=== PATIENT | male | born 1960 | race African-American/Black ===

== ENCOUNTER 2017-09-25 08:40 | Observation (INO) | payer OTHER ==
[2017-09-25] MEDS ORDERED: SODIUM CHLORIDE 1,000 ML IV STA (08:58)
--- NOTE | 2017-09-25 09:00 | PDOC ---
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 EMS's field EKG showed concave upward ST elevations in anterior leads without reciprocal changes, and their VS were wnl (BP in the 150s systolic prior to NTG). The patient notes no pain or other symptoms currently. At no time in the past few days has he had nausea, vomiting, SOB, sweats, jaw pain, neck pain, shoulder pain, back pain, or abdominal pain. He took no medications for his pain last night, but was still able to sleep though the pain, and he has never had this pain before. Past History - Past Medical History Allergies/Adverse Reactions: Allergies Allergy/AdvReac Type Severity Reaction Status Date / Time No Known Allergies Allergy Verified 09/25/17 08:45 Home Medications: Ambulatory Orders Aspirin 81 mg PO DAILY 09/25/17 Metoprolol Tartrate [Lopressor] 100 mg PO DAILY 09/25/17 COPD: No HTN: Yes Seizures: Yes (schiophrenia) - Suicide/Smoking/Psychosocial Hx Smoking History: Current every day smoker Have you smoked in the past 12 months: Yes Number of Cigarettes Smoked Daily: 7 Information on smoking cessation initiated: No Hx Alcohol Use: No Drug/Substance Use Hx: No Substance Use Type: None Review of Systems - Review of Systems Able to Perform ROS?: Yes Constitutional: No: Chills, Fever, Unexplained wgt Loss HEENTM: No: Nose Congestion, Throat Pain Respiratory: No: Cough, Shortness of Breath Cardiac (ROS): Yes: Chest Pain. No: Palpitations ABD/GI: No: Constipated, Diarrhea, Nausea, Vomiting : No: Burning, Dysuria Musculoskeletal: No: Back Pain, Neck Pain Integumentary: No: Bruising, Rash Neurological: No: Headache, Numbness, Tingling, Weakness, Dizziness Endocrine: No: Unexplained Weight Gain, Unexplained Weight Loss *Physical Exam - Vital Signs Last Vital Signs Temp Pulse Resp BP Pulse Ox 97.8 F 75 18 129/87 99 09/25/17 08:46 09/25/17 10:21 09/25/17 10:21 09/25/17 10:21 09/25/17 10:21 - Physical Exam General Appearance: Yes: Nourished, Appropriately Dressed, Thin, Other (well- appearing and nontoxic adult male who answers questions appropriately, appears comfortable). No: Apparent Distress HEENT: positive: EOMI, Normal Voice, Scleral Icterus (R) (mild), Scleral Icterus (L) (mild), Hearing Grossly Normal. negative: Nasal Congestion Neck: positive: Trachea midline, Supple. negative: Tender, Rigid Respiratory/Chest: positive: Lungs Clear, Normal Breath Sounds. negative: Chest Tender, Respiratory Distress, Crackles, Rhonchi, Stridor, Wheezing Cardiovascular: positive: Regular Rhythm, Regular Rate, S1, S2. negative: Edema , JVD, Murmur Gastrointestinal/Abdominal: positive: Normal Bowel Sounds, Flat, Soft. negative : Tender, Organomegaly, Pulsatile Mass, Guarding Musculoskeletal: positive: Normal Inspection. negative: Decreased Range of Motion, Vertebral Tenderness Extremity: positive: Normal Capillary Refill, Normal Inspection, Normal Range of Motion. negative: Tender, Cyanosis Integumentary: positive: Normal Color, Dry, Warm. 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 (grossly), Fully Oriented, Alert, Normal Mood/Affect, Normal Response, Motor Strength 5/5 Heart Score/ECG Review - History History: Moderately suspicious - Electrocardiogram EKG: Non specific repolarization disturbance - Age Age: 45-65 - Risk Factors Risk Factors Heart Score: Yes Hx Hypercholesterolemia, Yes Hx Hypertension, Yes Smoking History Based on the list above the patient has:: >/=3 risk factors or Hx atherosclerotic disease - Troponin Troponin: </= normal limit - Score Heart Score - Total: 5 ED Treatment Course - LABORATORY CBC & Chemistry Diagram: 09/25/17 09:10 09/25/17 09:10 - ADDITIONAL ORDERS Additional order review: Laboratory Results 09/25/17 09/25/17 09/25/17 09:10 09:10 09:10 PT with INR INR D-Dimer Sodium 140 Potassium 3.8 Chloride 104 Carbon Dioxide 31 Anion Gap 5 L BUN 11 Creatinine 0.8 Creat Clearance w eGFR > 60 Random Glucose 62 L Calcium 8.5 Magnesium 2.0 Total Bilirubin 0.6 AST 14 L ALT 25 Alkaline Phosphatase 63 Creatine Kinase 214 Troponin I < 0.02 Total Protein 6.7 Albumin 3.8 Lipase 166 Urine Color Straw Urine Appearance Clear Urine pH 7.0 Ur Specific [place] 1.004 Urine Protein Negative Urine Glucose (UA) Negative Urine Ketones Negative Urine Blood Negative Urine Nitrite Negative Urine Bilirubin Negative Urine Urobilinogen Negative Ur Leukocyte Esterase Negative Blood Type AB POSITIVE Antibody Screen Negative 09/25/17 09:10 PT with INR 11.50 INR 1.02 D-Dimer < 200 Sodium Potassium Chloride Carbon Dioxide Anion Gap BUN Creatinine Creat Clearance w eGFR Random Glucose Calcium Magnesium Total Bilirubin AST ALT Alkaline Phosphatase Creatine Kinase Troponin I Total Protein Albumin Lipase Urine Color Urine Appearance Urine pH Ur Specific [place] Urine Protein Urine Glucose (UA) Urine Ketones Urine Blood Urine Nitrite Urine Bilirubin Urine Urobilinogen Ur Leukocyte Esterase Blood Type Antibody Screen 09/25/17 09:10 RBC 4.43 MCV 98.2 H MCHC 32.6 RDW 13.8 MPV 7.7 Neutrophils % 45.3 Lymphocytes % 44.4 H Monocytes % 8.4 Eosinophils % 1.2 Basophils % 0.7 - RADIOLOGY Radiology Studies Ordered: Category Date Time Status CHEST PA & LAT [RAD] Stat Radiology 09/25/17 08:58 Taken - Medications Given in the ED: ED Medications Discontinued Medications Generic Name Dose Route Start Last Admin Trade Name Freq PRN Reason Stop Dose Admin Sodium Chloride 1,000 mls @ 1,000 mls/hr 09/25/17 08:58 09/25/17 10:12 Normal Saline - IV 09/25/17 09:57 1,000 mls/hr ASDIR STA Administration Medical Decision Making - Medical Decision Making 57 YOM with HTN HLD Smoker Schizophrenia p/w chest pain resolved with NTG and ASA. VS wnl and appears comfortable, NAD, NARD, heart exam wnl, lungs CTAB, abdomen no ttp. EKG with isolated BAKARI in V1, no reciprocal changes, t-wave flattening in III and aVL. DDX IBNLT ACS, angina (stable vs unstable), PNA, bronchitis, esophageal tear, GERD, PTX, panc, GB, etc. Ordered is CBCD CMP Mg Cardiac panel Coags T&S Lipase UA Cx EKG CXR. Patient likely to be admitted at least to obs for cardiology consult and stress test/further monitoring. 09/25/17 10:30 Enzymes wnl, otherwise w/u unremarkable except EKG as noted above. Spoke with patient; he can't remember the name of his PCP. Spoke with Tiana Greco, patient admitted to Tele Obs [facility]. *DC/Admit/Observation/Transfer Diagnosis at time of Disposition: Chest pain Qualifiers: Chest pain type: unspecified Qualified Code(s): R07.9 - Chest pain, unspecified - Discharge Dispostion Condition at time of disposition: Guarded Admit: Yes Decision to Admit order Date/Time: Decision to Admit Order Category Date Time Status Decision to Admit to Hospital Routine Admission 09/25/17 10:30 Ordered - Referrals - Patient Instructions - Post Discharge Activity
[2017-09-25 09:27] LABS: BASO % 0.7 % (0-2.0); EOS % 1.2 % (0-4.5); HEMATOCRIT 43.5 % (35.4-49); HEMOGLOBIN 14.2 GM/dL (11.7-16.9); LYMPH % 44.4 % (8-40); MCHC 32.6 g/dl (32.0-35.9); MEAN CELL VOLUME 98.2 fl (80-96); MEAN PLT VOLUME 7.7 fl (7.5-11.1); MONO % 8.4 % (3.8-10.2); NEUT % 45.3 % (42.8-82.8); PLATELET COUNT 198 K/MM3 (134-434); RBC 4.43 M/mm3 (4.00-5.60); RDW 13.8 % (11.9-15.9); WHITE BLOOD COUNT 5.2 K/mm3 (4.0-10.0)
[2017-09-25 09:30] LABS: URINE APPEARANCE CLEAR; URINE BILIRUBIN NEGATIVE (NEGATIVE); URINE BLOOD NEGATIVE (NEGATIVE); URINE COLOR STRAW; URINE GLUCOSE (UA) NEGATIVE (NEGATIVE); URINE KETONE NEGATIVE (NEGATIVE); URINE LEUK ESTERASE NEGATIVE (NEGATIVE); URINE NITRITE NEGATIVE (NEGATIVE); URINE PROTEIN NEGATIVE (NEGATIVE); URINE UROBILINOGEN NEGATIVE mg/dL (0.2-1.0)
[2017-09-25 09:50] LABS: ALBUMIN 3.8 g/dl (3.4-5.0); ANION GAP 5 (8-16); BILIRUBIN,TOTAL 0.6 mg/dL (0.2-1.0); BLOOD UREA NITROGEN 11 mg/dL (7-18); CALCIUM 8.5 mg/dL (8.5-10.1); CHLORIDE 104 mmol/L (98-107); CO2 31 mmol/L (21-32); CREATININE 0.8 mg/dL (0.7-1.3); GLUCOSE,RANDOM 62 mg/dL (74-106); LIPASE 166 U/L (73-393); POTASSIUM 3.8 mmol/L (3.5-5.1); SGOT/AST 14 U/L (15-37); SGPT/ALT 25 U/L (12-78); SODIUM 140 mmol/L (136-145); TOT PROT 6.7 g/dl (6.4-8.2)
[2017-09-25 09:53] LABS: ALK PHOS 63 U/L (45-117)
[2017-09-25 10:06] LABS: INR 1.02 (0.82-1.09)
[2017-09-25 10:07] LABS: D-DIMER < 200 ng/ml (0-500)
--- NOTE | 2017-09-25 10:20 | PDOC ---
Attending Attestation - Resident Resident Name: Lia Hermosillo - ED Attending Attestation I have performed the following: I have examined & evaluated the patient, The case was reviewed & discussed with the resident, I agree w/resident's findings & plan, Exceptions are as noted - HPI HPI: 09/25/17 10:17 57-year-old male with history of hypertension, high cholesterol, schizophrenia, active smoker presents brought in by ambulance with chest pain since last night. Symptoms currently resolved, received ntg by EMS. - Physicial Exam PE: 09/25/17 10:18 VSS, thin regular heart sounds, clear lungs no edema - Medical Decision Making 09/25/17 10:18 Patient seen and evaluated with the resident. I agree with the overall evaluation, assessment, and management with the following summary of visit: 57-year-old male presents with chest pain since last night, possibly ACS. No risk factors for PE, vital signs normal. EKG without acute ischemic changes Labs, chest x-ray Aspirin Admission to telemetry for further cardiac monitoring and evaluation Heart Score/ECG Review #1 General ECG Interpretation: Sinus Rhythm, Normal Rate, Normal Intervals, No acute ischemic changes (poor baseline in V1, flat T II)
--- NOTE | 2017-09-25 10:49 | EKG ---
Test Reason : Blood Pressure : / mmHG Vent. Rate : 067 BPM Atrial Rate : 067 BPM P-R Int : 158 ms QRS Dur : 090 ms QT Int : 368 ms P-R-T Axes : 060 038 048 degrees QTc Int : 388 ms NORMAL SINUS RHYTHM NORMAL ECG NO PREVIOUS ECGS AVAILABLE Confirmed by Francis Weaver ([id number]) on 09/25/2017 10:48:50 AM Referred By: Confirmed By:Fracnis Weaver
[2017-09-25] MEDS ORDERED: ACETAMINOPHEN 325 MG TABLET (FP) PO PRN (10:52)
--- NOTE | 2017-09-25 11:09 | HP ---
CHIEF COMPLAINT: Chest pain PCP: [facility] Psych: Dr. Benton, [facility] HISTORY OF PRESENT ILLNESS: 57 year-old male with a PMH significant for HTN, HLD, schizophrenia, and current smoker. Patient reports he had just gotten off the bus from [facility] and was walking to the [place] [facility] [address] where he resides when he developed sharp, mid-sternal chest pain. He continued walking to the [place] [facility] and went to sleep. When he awoke this morning the pain was still present. EMS was activated and en route to the ED they administered sublingual nitro and a full dose ASA and patient reports his pain was immediately relieved. Patient denies SOB, GALARZA, decreased exercise tolerance, palpitations, dizziness, or lower extremity edema. He states when he flexes his neck he can reproduce the chest pain. ER course was notable for: (1) Troponin neg x 1 (2) CXR unremarkable (3) Non-specific ECG changes Recent Travel: No PAST MEDICAL HISTORY: Hypertension Hyperlipidemia Schizophrenia PAST SURGICAL HISTORY: None reported Social History: Smoking: current every day Alcohol: no Drugs: no Family History: mother alive 94 unaware of medical history; father 73 internal bleeding; siblings a&w; children a&w Allergies No Known Allergies Allergy (Verified 09/25/17 08:45) HOME MEDICATIONS: Home Medications Medication Instructions Recorded Aspirin 81 mg PO DAILY 09/25/17 Metoprolol Tartrate [Lopressor] 100 mg PO DAILY 09/25/17 REVIEW OF SYSTEMS CONSTITUTIONAL: Absent: fever, chills, diaphoresis, generalized weakness, malaise, loss of appetite, weight change HEENT: Absent: rhinorrhea, nasal congestion, throat pain, throat swelling, difficulty swallowing, mouth swelling, ear pain, eye pain, visual changes CARDIOVASCULAR: +chest pain Absent: syncope, palpitations, irregular heart rate, lightheadedness, peripheral edema RESPIRATORY: Absent: cough, shortness of breath, dyspnea with exertion, orthopnea, wheezing, stridor, hemoptysis GASTROINTESTINAL: Absent: abdominal pain, abdominal distension, nausea, vomiting, diarrhea, constipation, melena, hematochezia GENITOURINARY: Absent: dysuria, frequency, urgency, hesitancy, hematuria, flank pain, genital pain MUSCULOSKELETAL: Absent: myalgia, arthralgia, joint swelling, back pain, neck pain SKIN: Absent: rash, itching, pallor HEMATOLOGIC/IMMUNOLOGIC: Absent: easy bleeding, easy bruising, lymphadenopathy, frequent infections ENDOCRINE: Absent: unexplained weight gain, unexplained weight loss, heat intolerance, cold intolerance NEUROLOGIC: Absent: headache, focal weakness or paresthesias, dizziness, unsteady gait, seizure, mental status changes, bladder or bowel incontinence PSYCHIATRIC: Absent: anxiety, depression, suicidal or homicidal ideation, hallucinations. PHYSICAL EXAMINATION Vital Signs - 24 hr 09/25/17 09/25/17 09/25/17 08:46 09:33 10:21 Temperature 97.8 F Pulse Rate 74 Pulse Rate [ 77 75 Left Radial] Respiratory 20 21 18 Rate Blood Pressure 130/87 Blood Pressure 132/87 129/87 [Right Arm] O2 Sat by Pulse 100 97 99 Oximetry (%) GENERAL: Awake, alert, and fully oriented, in no acute distress. HEAD: Normal with no signs of trauma. EYES: Pupils equal, round and reactive to light, extraocular movements intact, sclera anicteric, conjunctiva clear. No lid lag. EARS, NOSE, THROAT: Ears normal, nares patent, oropharynx clear without exudates. Moist mucous membranes. NECK: Normal range of motion, supple without lymphadenopathy, JVD, or masses. LUNGS: Breath sounds equal, clear to auscultation bilaterally. No wheezes, and no crackles. No accessory muscle use. HEART: Regular rate and rhythm, normal S1 and S2 ABDOMEN: Soft, nontender, not distended, normoactive bowel sounds, no guarding, no rebound, no masses. No hepatomegaly or splenomegaly. MUSCULOSKELETAL: Normal range of motion at all joints. No bony deformities or tenderness. No CVA tenderness. UPPER EXTREMITIES: 2+ pulses, warm, well-perfused. No cyanosis. No clubbing. No peripheral edema. LOWER EXTREMITIES: 2+ pulses, warm, well-perfused. No calf tenderness. No peripheral edema. NEUROLOGICAL: Cranial nerves II-XII intact. Normal speech. PSYCHIATRIC: Cooperative. Good eye contact. Appropriate mood and affect. Laboratory Results - last 24 hr 09/25/17 09/25/17 09/25/17 09:10 09:10 09:10 WBC 5.2 RBC 4.43 Hgb 14.2 Hct 43.5 MCV 98.2 H MCH 32.0 MCHC 32.6 RDW 13.8 Plt Count 198 MPV 7.7 Neutrophils % 45.3 Lymphocytes % 44.4 H Monocytes % 8.4 Eosinophils % 1.2 Basophils % 0.7 PT with INR 11.50 INR 1.02 D-Dimer < 200 Sodium Potassium Chloride Carbon Dioxide Anion Gap BUN Creatinine Creat Clearance w eGFR Random Glucose Calcium Magnesium Total Bilirubin AST ALT Alkaline Phosphatase Creatine Kinase Troponin I Total Protein Albumin Lipase Urine Color Straw Urine Appearance Clear Urine pH 7.0 Ur Specific [place] 1.004 Urine Protein Negative Urine Glucose (UA) Negative Urine Ketones Negative Urine Blood Negative Urine Nitrite Negative Urine Bilirubin Negative Urine Urobilinogen Negative Ur Leukocyte Esterase Negative Blood Type Antibody Screen 09/25/17 09/25/17 09:10 09:10 WBC RBC Hgb Hct MCV MCH MCHC RDW Plt Count MPV Neutrophils % Lymphocytes % Monocytes % Eosinophils % Basophils % PT with INR INR D-Dimer Sodium 140 Potassium 3.8 Chloride 104 Carbon Dioxide 31 Anion Gap 5 L BUN 11 Creatinine 0.8 Creat Clearance w eGFR > 60 Random Glucose 62 L Calcium 8.5 Magnesium 2.0 Total Bilirubin 0.6 AST 14 L ALT 25 Alkaline Phosphatase 63 Creatine Kinase 214 Troponin I < 0.02 Total Protein 6.7 Albumin 3.8 Lipase 166 Urine Color Urine Appearance Urine pH Ur Specific [place] Urine Protein Urine Glucose (UA) Urine Ketones Urine Blood Urine Nitrite Urine Bilirubin Urine Urobilinogen Ur Leukocyte Esterase Blood Type AB POSITIVE Antibody Screen Negative ASSESSMENT/PLAN 57 year-old male with a PMH significant for HTN, HLD, schizophrenia, and current smoker. Placed on observation for chest pain. Chest pain --troponin neg x2; third pending --ECG without signs of acute ischemic event --CXR unremarkable --Echo: LV normal; RV normal; no valvular abnormalities --Sestimibi stress test in progress, complete tomorrow Hypertension --BP stable --hold metoprolol due to stress testing Hyperlipidemia --continue Lipitor Schizophrenia --continue haldol BID FEN Fluids: PO intake adequate Electrolytes: replete as indicated Nutrition: low sodium; NPO after midnight DVT prophylaxis: oob, ambulation Dispo: continues to require observation. Full code. Visit type - Emergency Visit Emergency Visit: Yes ED Registration Date: 09/25/17 Care time: The patient presented to the Emergency Department on the above date and was hospitalized for further evaluation of their emergent condition. - New Patient This patient is new to me today: Yes Date on this admission: 09/25/17 - Critical Care Critical Care patient: No
[2017-09-25] MEDS ORDERED: ASPIRIN 325 MG ENTERIC COATED TABLET (FP) PO ONE (11:11)
[2017-09-25] MEDS ORDERED: ATORVASTATIN CA 40 MG TABLET (FP) PO ONE (11:23)
[2017-09-25] MEDS ORDERED: NITROGLYCERIN SUBLINGUAL 1/150 0.4 MG TAB SL PRN (11:24)
[2017-09-25] MEDS ORDERED: PATIENT'S OWN MEDICATION (NON-FORMULARY) (Metoprolol Tartrate [Lopressor] 100 MG) PO SCH (11:30)
[2017-09-25] MEDS ORDERED: METOPROLOL TARTRATE 50 MG TABLET (FP) PO SCH (11:30)
[2017-09-25 12:45] VITALS: BMI 21.8
[2017-09-25] MEDS: DEXTROSE 5%-NORMAL SALINE 1,000 ML IV SCH (12:52)
--- NOTE | 2017-09-25 13:23 | CON.CARD ---
Consult Consult Specialty:: Cardiology Reason for Consultation:: Chest pain - History of Present Illness History of Present Illness: 57 M with HTN, HLD and schizophrenia was admitted after several hours of left sided chest pain which started yesterday afternoon and continued all night. Patient reported symptoms to his home nursing staff in the morning and EMS was called. His pain subsided after SL NTG given by EMS. CP is left sided without radiation and increases when ambulating. Currently pain free - History Source History Provided By: Patient Limitations to Obtaining History: No Limitations - Past Medical History Cardio/Vascular: Yes: HTN, Hyperlipdemia Psych: Yes: Schizophrenia - Alcohol/Substance Use Hx Alcohol Use: No - Smoking History Smoking history: Current every day smoker Have you smoked in the past 12 months: Yes Aproximately how many cigarettes per day: 7 Home Medications - Allergies Allergies/Adverse Reactions: Allergies Allergy/AdvReac Type Severity Reaction Status Date / Time No Known Allergies Allergy Verified 09/25/17 08:45 - Home Medications Home Medications: Ambulatory Orders Aspirin 81 mg PO DAILY 09/25/17 Haloperidol [Haldol -] 5 mg PO BID 09/25/17 Metoprolol Tartrate [Lopressor] 100 mg PO DAILY 09/25/17 Simvastatin [Zocor -] 10 mg PO DAILY 09/25/17 Review of Systems - Review of Systems Constitutional: reports: No Symptoms, Chills Eyes: reports: No Symptoms HENT: reports: No Symptoms. denies: Difficult Swallowing Neck: reports: No Symptoms Cardiovascular: reports: Chest Pain. denies: Palpitations, Shortness of Breath Respiratory: reports: Exercise Intolerance. denies: Cough, Hemoptysis, Orthopnea, SOB on Exertion Gastrointestinal: reports: No Symptoms Genitourinary: reports: No Symptoms Vital Signs: Vital Signs Temperature 98 F 09/25/17 13:07 Pulse Rate 62 09/25/17 13:07 Respiratory Rate 18 09/25/17 13:07 Blood Pressure 134/90 09/25/17 13:07 O2 Sat by Pulse Oximetry (%) 97 09/25/17 12:58 Constitutional: Yes: Well Nourished, No Distress, Calm Eyes: Yes: Conjunctiva Clear, EOM Intact HENT: Yes: Atraumatic, Normocephalic Neck: Yes: Supple, Trachea Midline Respiratory: Yes: Regular, CTA Bilaterally Gastrointestinal: Yes: Normal Bowel Sounds, Soft Cardiovascular: Yes: Regular Rate and Rhythm JVD: No Carotid Bruit: No PMI: Non-Displaced Heart Sounds: Yes: S1, S2 Murmur: No: Systolic Murmur, Diastolic Murmur Edema: No - Other Data Labs, Other Data: CBC, BMP 09/25/17 09:10 09/25/17 09:10 INR, PTT INR 1.02 (0.82-1.09) 09/25/17 09:10 Troponin, BNP 09/25/17 09:10 Troponin I < 0.02 Troponin, BNP 09/25/17 09:10 Troponin I < 0.02 NSR no STT changes Problem List - Problems (1) Chest pain Code(s): R07.9 - CHEST PAIN, UNSPECIFIED Qualifiers: Chest pain type: unspecified Qualified Code(s): R07.9 - Chest pain, unspecified Assessment/Plan Prolonged CP with exacerbation on exertion. Presentation TP and ECG is normal. Rec obtaining Nuclear stress test. Hold metoprolol
[2017-09-25] MEDS: HALOPERIDOL 5 MG TABLET (FP) PO SCH (21:18)
[2017-09-26 07:20] LABS: BASO % 0.5 % (0-2.0); EOS % 1.1 % (0-4.5); HEMATOCRIT 42.4 % (35.4-49); LYMPH % 36.1 % (8-40); MCH 32.2 pg (25.7-33.7); MEAN CELL VOLUME 97.5 fl (80-96); MEAN PLT VOLUME 8.2 fl (7.5-11.1); NEUT % 51.3 % (42.8-82.8); PLATELET COUNT 191 K/MM3 (134-434); RBC 4.34 M/mm3 (4.00-5.60); RDW 13.7 % (11.9-15.9); WHITE BLOOD COUNT 5.3 K/mm3 (4.0-10.0)
[2017-09-26 07:54] LABS: CHLORIDE 108 mmol/L (98-107); POTASSIUM 4.1 mmol/L (3.5-5.1); SODIUM 145 mmol/L (136-145)
[2017-09-26 08:03] LABS: ALBUMIN 3.5 g/dl (3.4-5.0); ALK PHOS 54 U/L (45-117); ANION GAP 8 (8-16); BILIRUBIN,TOTAL 0.6 mg/dL (0.2-1.0); BLOOD UREA NITROGEN 19 mg/dL (7-18); CALCIUM 8.6 mg/dL (8.5-10.1); CO2 29 mmol/L (21-32); CREATININE 1.1 mg/dL (0.7-1.3); GLUCOSE,RANDOM 80 mg/dL (74-106); MAGNESIUM 2.1 mg/dL (1.8-2.4); SGOT/AST 20 U/L (15-37); SGPT/ALT 23 U/L (12-78); TOT PROT 6.2 g/dl (6.4-8.2)
--- NOTE | 2017-09-26 08:35 | PN ---
Physical Exam: SUBJECTIVE: Patient seen and examined OBJECTIVE: Vital Signs Period Temp Pulse Resp BP Sys/Carney Pulse Ox Last 24 Hr 97.0 F-98.2 F 62-77 18-21 129-144/82-96 97-100 Laboratory Results - last 24 hr 09/25/17 09/25/17 09/25/17 09:10 09:10 09:10 WBC 5.2 RBC 4.43 Hgb 14.2 Hct 43.5 MCV 98.2 H MCH 32.0 MCHC 32.6 RDW 13.8 Plt Count 198 MPV 7.7 Neutrophils % 45.3 Lymphocytes % 44.4 H Monocytes % 8.4 Eosinophils % 1.2 Basophils % 0.7 PT with INR 11.50 INR 1.02 D-Dimer < 200 Sodium Potassium Chloride Carbon Dioxide Anion Gap BUN Creatinine Creat Clearance w eGFR Random Glucose Calcium Magnesium Total Bilirubin AST ALT Alkaline Phosphatase Creatine Kinase Creatine Kinase Index CK-MB (CK-2) Troponin I Total Protein Albumin Lipase Urine Color Straw Urine Appearance Clear Urine pH 7.0 Ur Specific [place] 1.004 Urine Protein Negative Urine Glucose (UA) Negative Urine Ketones Negative Urine Blood Negative Urine Nitrite Negative Urine Bilirubin Negative Urine Urobilinogen Negative Ur Leukocyte Esterase Negative Blood Type Antibody Screen 09/25/17 09/25/17 09/25/17 09:10 09:10 15:00 WBC RBC Hgb Hct MCV MCH MCHC RDW Plt Count MPV Neutrophils % Lymphocytes % Monocytes % Eosinophils % Basophils % PT with INR INR D-Dimer Sodium 140 Potassium 3.8 Chloride 104 Carbon Dioxide 31 Anion Gap 5 L BUN 11 Creatinine 0.8 Creat Clearance w eGFR > 60 Random Glucose 62 L Calcium 8.5 Magnesium 2.0 Total Bilirubin 0.6 AST 14 L ALT 25 Alkaline Phosphatase 63 Creatine Kinase 214 Creatine Kinase Index 0.8 CK-MB (CK-2) 1.919 Troponin I < 0.02 < 0.02 Total Protein 6.7 Albumin 3.8 Lipase 166 Urine Color Urine Appearance Urine pH Ur Specific [place] Urine Protein Urine Glucose (UA) Urine Ketones Urine Blood Urine Nitrite Urine Bilirubin Urine Urobilinogen Ur Leukocyte Esterase Blood Type AB POSITIVE Antibody Screen Negative 09/25/17 09/26/17 09/26/17 21:00 06:11 06:11 WBC 5.3 RBC 4.34 Hgb 14.0 Hct 42.4 MCV 97.5 H MCH 32.2 MCHC 33.0 RDW 13.7 Plt Count 191 MPV 8.2 Neutrophils % 51.3 Lymphocytes % 36.1 Monocytes % 11.0 H Eosinophils % 1.1 Basophils % 0.5 PT with INR INR D-Dimer Sodium 145 Potassium 4.1 Chloride 108 H Carbon Dioxide 29 Anion Gap 8 BUN 19 H D Creatinine 1.1 D Creat Clearance w eGFR > 60 Random Glucose 80 D Calcium 8.6 Magnesium 2.1 Total Bilirubin 0.6 AST 20 D ALT 23 Alkaline Phosphatase 54 Creatine Kinase Creatine Kinase Index CK-MB (CK-2) Troponin I < 0.02 Total Protein 6.2 L Albumin 3.5 Lipase Urine Color Urine Appearance Urine pH Ur Specific [place] Urine Protein Urine Glucose (UA) Urine Ketones Urine Blood Urine Nitrite Urine Bilirubin Urine Urobilinogen Ur Leukocyte Esterase Blood Type Antibody Screen Active Medications Generic Name Dose Route Start Last Admin Trade Name Freq PRN Reason Stop Dose Admin Acetaminophen 650 mg 09/25/17 10:52 Tylenol - PO Q6H PRN PAIN LEVEL 1-5 Aspirin 81 mg 09/26/17 10:00 Asa - PO DAILY RAFAL Atorvastatin Calcium 40 mg 09/26/17 22:00 Lipitor - PO HS RAFAL Haloperidol 5 mg 09/25/17 22:00 09/25/17 21:18 Haldol - PO Not Given BID RAFAL Dextrose/Sodium Chloride 1,000 mls @ 50 mls/hr 09/25/17 12:15 09/25/17 12:52 D5-Ns - IV 50 mls/hr ASDIR RAFAL Administration Metoprolol Tartrate 50 mg 09/25/17 11:30 09/26/17 07:40 Lopressor - PO Not Given BID RAFAL Nitroglycerin 0.4 mg 09/25/17 11:24 Nitrostat - SL Q5M PRN FOR CHEST PAIN ASSESSMENT/PLAN: 57 year-old male with a PMH significant for HTN, HLD, schizophrenia, and current smoker. Placed on observation for chest pain. Chest pain --troponin neg x2; third pending --ECG without signs of acute ischemic event --CXR unremarkable --Echo: LV normal; RV normal; no valvular abnormalities --Sestimibi stress test in progress, complete tomorrow Hypertension --BP stable --hold metoprolol due to stress testing Hyperlipidemia --continue Lipitor Schizophrenia --continue haldol BID FEN Fluids: PO intake adequate Electrolytes: replete as indicated Nutrition: low sodium; NPO after midnight DVT prophylaxis: oob, ambulation Dispo: continues to require observation. Full code.
[2017-09-26] MEDS ORDERED: ASPIRIN 81 MG CHEWABLE TABLETS PO SCH (10:00)
--- NOTE | 2017-09-26 11:30 | EKG ---
Test Reason : Blood Pressure : / mmHG Vent. Rate : 058 BPM Atrial Rate : 058 BPM P-R Int : 168 ms QRS Dur : 088 ms QT Int : 384 ms P-R-T Axes : 070 045 049 degrees QTc Int : 376 ms SINUS BRADYCARDIA OTHERWISE NORMAL ECG WHEN COMPARED WITH ECG OF 25-SEP-2017 08:43, CRITERIA FOR SEPTAL INFARCT ARE NO LONGER PRESENT T WAVE AMPLITUDE HAS INCREASED IN ANTERIOR LEADS Confirmed by JOSE LUIS JOHNSON, YEMI ([id number]) on 09/26/2017 11:30:17 AM Referred By: Chana BIRCH Confirmed By:YEMI AMAYA MD
[2017-09-26] MEDS: HALOPERIDOL 5 MG TABLET (FP) PO SCH (12:51)
[2017-09-26] MEDS: DEXTROSE 5%-NORMAL SALINE 1,000 ML IV SCH (12:51)
[2017-09-26] MEDS ORDERED: PT OWN MED DRAWER 7, Y5N ONE (12:51)
--- NOTE | 2017-09-26 13:53 | DS ---
Physical Exam: SUBJECTIVE: Patient seen and examined OBJECTIVE: Vital Signs Period Temp Pulse Resp BP Sys/Carney Pulse Ox Last 24 Hr 97.0 F-98.2 F 64-70 20-20 131-144/82-96 98-99 PHYSICAL EXAM GENERAL: The patient is awake, alert, and fully oriented, in no acute distress. HEAD: Normal with no signs of trauma. EYES: PERRL, extraocular movements intact, sclera anicteric, conjunctiva clear. ENT: Ears normal, nares patent, oropharynx clear without exudates, moist mucous membranes. NECK: Trachea midline, full range of motion, supple. LUNGS: Breath sounds equal, clear to auscultation bilaterally, no wheezes, no crackles, no accessory muscle use. HEART: Regular rate and rhythm, S1, S2 without murmur, rub or gallop. ABDOMEN: Soft, nontender, nondistended, normoactive bowel sounds, no guarding, no rebound, no hepatosplenomegaly, no masses. EXTREMITIES: 2+ pulses, warm, well-perfused, no edema. NEUROLOGICAL: Cranial nerves II through XII grossly intact. Normal speech, gait not observed. PSYCH: Normal mood, normal affect. SKIN: Warm, dry, normal turgor, no rashes or lesions noted. LABS Laboratory Results - last 24 hr 09/25/17 09/25/17 09/25/17 09:10 15:00 21:00 WBC RBC Hgb Hct MCV MCH MCHC RDW Plt Count MPV Neutrophils % Lymphocytes % Monocytes % Eosinophils % Basophils % Sodium Potassium Chloride Carbon Dioxide Anion Gap BUN Creatinine Creat Clearance w eGFR Random Glucose Calcium Magnesium Total Bilirubin AST ALT Alkaline Phosphatase Creatine Kinase Index 0.8 CK-MB (CK-2) 1.919 Troponin I < 0.02 < 0.02 Total Protein Albumin 09/26/17 09/26/17 06:11 06:11 WBC 5.3 RBC 4.34 Hgb 14.0 Hct 42.4 MCV 97.5 H MCH 32.2 MCHC 33.0 RDW 13.7 Plt Count 191 MPV 8.2 Neutrophils % 51.3 Lymphocytes % 36.1 Monocytes % 11.0 H Eosinophils % 1.1 Basophils % 0.5 Sodium 145 Potassium 4.1 Chloride 108 H Carbon Dioxide 29 Anion Gap 8 BUN 19 H D Creatinine 1.1 D Creat Clearance w eGFR > 60 Random Glucose 80 D Calcium 8.6 Magnesium 2.1 Total Bilirubin 0.6 AST 20 D ALT 23 Alkaline Phosphatase 54 Creatine Kinase Index CK-MB (CK-2) Troponin I Total Protein 6.2 L Albumin 3.5 HOSPITAL COURSE: Date of Admission:09/25/17 Date of Discharge: 09/26/17 Pre hospital course 57 year-old male with a PMH significant for HTN, HLD, schizophrenia, and current smoker. Patient reports he had just gotten off the bus from [facility] and was walking to the jail on [facility] where he resides when he developed sharp, mid-sternal chest pain. He continued walking to the jail and went to sleep. When he awoke this morning the pain was still present. EMS was activated and en route to the ED they administered sublingual nitro and a full dose ASA and patient reports his pain was immediately relieved. Patient denies SOB, GALARZA, decreased exercise tolerance, palpitations, dizziness, or lower extremity edema. He states when he flexes his neck he can reproduce the chest pain. ER course (1) Troponin neg x 1 (2) CXR unremarkable (3) Non-specific ECG changes Subsequent hospital course by problem list Chest pain --troponin neg x3 --ECG without signs of acute ischemic event --CXR unremarkable --09/26 Sestimibi stress test: fixed inferior wall perfusion defect consistent with diaphragmatic attenuation Systolic heart failure --09/25 Echo: LV normal; RV normal; no valvular abnormalities --09/26 stress test: mild global hypokineses, mildly reduced systolic function , EF 44% Hypertension --BP stable --resumed home metoprolol Hyperlipidemia --continue Lipitor Schizophrenia --continue haldol BID FEN Fluids: PO intake adequate Electrolytes: replete as indicated Nutrition: low sodium; NPO after midnight DVT prophylaxis: oob, ambulation Dispo: continues to require observation. Full code. Minutes to complete discharge: 35 Discharge Summary Reason For Visit: CHEST PAIN Current Active Problems Chest pain (Acute) Condition: Improved - Instructions Diet, Activity, Other Instructions: It is recommended you follow up with your primary care clinic at [facility]. Return to the emergency department for any new or worsening symptoms. Referrals: Neftali Cordova MD [Staff Physician] - Disposition: HOME - Home Medications Comprehensive Discharge Medication List: Ambulatory Orders Aspirin 81 mg PO DAILY 09/25/17 Haloperidol [Haldol -] 5 mg PO BID 09/25/17 Metoprolol Tartrate [Lopressor] 100 mg PO DAILY 09/25/17 Simvastatin [Zocor -] 10 mg PO DAILY 09/25/17 This patient is new to me today: No Emergency Visit: Yes ED Registration Date: 09/25/17 Care time: The patient presented to the Emergency Department on the above date and was hospitalized for further evaluation of their emergent condition. Critical Care patient: No - Discharge Referral Referred to [facility] No
[2017-09-26] MEDS ORDERED: METOPROLOL TARTRATE 50 MG TABLET (FP) PO STA (14:25)
--- NOTE | 2017-09-26 16:17 | PN ---
Progress Note, Physician Chief Complaint: Patient appears comfortable. He has mild anterior wall pain when he is moving upper body. No SOB or palpitation. Tele shows sinus with occasional mild bradycardia. History of Present Illness: 57 year-old man with a PMHx of HTN, HLD and schizophrenia was admitted after several hours of left sided chest pain. He was ruled out for acute [place]. No ECG evidence of ischemia. Echo 09/25/2017: Normal LV and RV function. No regional wall motion abnormalities noted. Treadmill exercise nuclear stress test 09/26/2017: No stress induced ischemia. Diaphragmatic soft tissue attenuation artifact noted. - Current Medication List Current Medications: Active Medications Acetaminophen (Tylenol -) 650 mg PO Q6H PRN PRN Reason: PAIN LEVEL 1-5 Aspirin (Asa -) 81 mg PO DAILY [facility] Last Admin: 09/26/17 12:51 Dose: 81 mg Atorvastatin Calcium (Lipitor -) 40 mg PO HS [facility] Haloperidol (Haldol -) 5 mg PO BID [facility] Last Admin: 09/26/17 12:51 Dose: 5 mg Dextrose/Sodium Chloride (D5-Ns -) 1,000 mls @ 50 mls/hr IV ASDIR [facility] Last Admin: 09/26/17 12:51 Dose: Not Given Metoprolol Tartrate (Lopressor -) 50 mg PO BID [facility] Last Admin: 09/26/17 07:40 Dose: Not Given Nitroglycerin (Nitrostat -) 0.4 mg SL Q5M PRN PRN Reason: FOR CHEST PAIN - Objective Vital Signs: Vital Signs Temperature 97.8 F 09/26/17 14:05 Pulse Rate 84 09/26/17 14:05 Respiratory Rate 20 09/26/17 14:05 Blood Pressure 150/86 09/26/17 14:05 O2 Sat by Pulse Oximetry (%) 98 09/26/17 12:45 Constitutional: Yes: Well Nourished, No Distress, Calm Eyes: Yes: WNL, Conjunctiva Clear, EOM Intact HENT: Yes: WNL, Atraumatic, Normocephalic Neck: Yes: Supple, Trachea Midline Cardiovascular: Yes: WNL, Regular Rate and Rhythm Respiratory: Yes: Regular, CTA Bilaterally Gastrointestinal: Yes: Normal Bowel Sounds, Soft ...Rectal Exam: Yes: Deferred Genitourinary: Yes: WNL Extremities: Yes: WNL Edema: No Peripheral Pulses WNL: Yes Labs: CBC, BMP 09/26/17 06:11 09/26/17 06:11 INR, PTT INR 1.02 (0.82-1.09) 09/25/17 09:10 Assessment/Plan 57 year-old man with a PMHx of HTN, HLD and schizophrenia was admitted after several hours of left sided chest pain. He was ruled out for acute [place]. No ECG evidence of ischemia. Echo 09/25/2017: Normal LV and RV function. No regional wall motion abnormalities noted. Treadmill exercise nuclear stress test 09/26/2017: No stress induced ischemia. Diaphragmatic soft tissue attenuation artifact noted. Atypical chest pain, likely non-cardiac origin. He has normal echo and normal nuclear stress test. Resume home meds. He can be discharged today.
[2017-09-26 18:51] VITALS: BP 113/85; PULSE 70; TEMP 98.4
[2017-09-26] MEDS ORDERED: ATORVASTATIN CA 40 MG TABLET (FP) PO SCH (22:00)
== END 2017-09-26 20:30 | disposition home or self-care (01) ==
LOC: JER 08:40 → JERBED 10:30 → J4W 12:10
PROVIDERS: ADMIT Internal Medicine; ATTEND Nurse Practitioner Acute Care
PROC: 3E0337Z Introduction of Electrolytic and Water Balance Substance into Peripheral Vein, Percutaneous Approach (ICD-10-PCS; principal; 2017-09-25)
DX: R07.9 Chest pain, unspecified (principal); I10 Essential (primary) hypertension; E78.5 Hyperlipidemia, unspecified; F20.9 Schizophrenia, unspecified; F17.210 Nicotine dependence, cigarettes, uncomplicated; Z79.82 Long term (current) use of aspirin
CPT/HCPCS: 36415; 71046-TC-FY; 78452-TC; 80053; 81003; 82550; 82553; 83690; 83735; 84484; 85025; 85379; 85610; 86850; 86900; 86901; 87086; 93005; 93010; 93017; 93306-TC; 96360; 99285-25; A9502; G0378

== ENCOUNTER 2017-11-13 13:28 | Emergency (ER) | payer OTHER ==
[2017-11-13 13:38] VITALS: TEMP 98.1; BMI 29.5
--- NOTE | 2017-11-13 14:16 | PDOC ---
History of Present Illness - General Chief Complaint: Altered Mental Status Stated Complaint: AMS Time Seen by Provider: 11/13/17 13:46 - History of Present Illness Initial Comments: 11/13/17 14:16 57 year-old male with a PMH significant for HTN, HLD, schizophrenia, and current smoker presents to the emergency department from his senior living complaining of brief dizziness while eating breakfast. Patient was sent to the emergency department for further evaluation of altered mental status although on arrival to the ED patient with no altered mental status patient with no complaints right now no longer dizzy denies headache blurry vision double vision chest pain shortness of breath nausea vomiting diarrhea lightheadedness was brief lasting less than 1 minute occurred while sitting no clear exacerbating or alleviating factors. Past History - Past Medical History Allergies/Adverse Reactions: Allergies Allergy/AdvReac Type Severity Reaction Status Date / Time No Known Allergies Allergy Verified 11/13/17 13:38 Home Medications: Ambulatory Orders Aspirin 81 mg PO DAILY 09/25/17 Metoprolol Tartrate [Lopressor] 100 mg PO DAILY 09/25/17 Simvastatin [Zocor -] 10 mg PO DAILY 09/25/17 Multivitamins [Tab-A-Vit -] 1 tab PO DAILY 11/13/17 Risperidone 2 mg PO BID 11/13/17 COPD: No HTN: Yes Hypercholesterolemia: Yes Seizures: Yes (schiophrenia) - Suicide/Smoking/Psychosocial Hx Smoking History: Unknown if ever smoked Have you smoked in the past 12 months: No Number of Cigarettes Smoked Daily: 7 Information on smoking cessation initiated: No Hx Alcohol Use: No Drug/Substance Use Hx: No Substance Use Type: None Review of Systems - Review of Systems Comments:: 11/13/17 14:22 ROS: A complete review of 10 out of 10 review of systems is taken and is negative apart from what is previously mentioned below and in the HPI. *Physical Exam - Vital Signs Last Vital Signs Temp Pulse Resp BP Pulse Ox 98.1 F 80 16 115/83 96 11/13/17 13:35 11/13/17 13:35 11/13/17 13:35 11/13/17 13:35 11/13/17 13:35 Heart Score/ECG Review - ECG Impressions Comment:: 11/13/17 16:45 EKG performed at 1512 demonstrates normal sinus rhythm at 76 bpm MN interval 152 QRS [address] elevations or T-wave inversions no evidence of WPW, Brugada, prolonged QT Interpreted by me ED Treatment Course - LABORATORY CBC & Chemistry Diagram: 11/13/17 14:35 11/13/17 14:35 Medical Decision Making - Medical Decision Making 11/13/17 16:45 Well-appearing no apparent distress patient observed in the emergency department for 3 hours no change in mental status CT head with no acute findings laboratory analysis unremarkable no fever no white count EKG unremarkable history examination consistent with transient lightheadedness normal neurologic examination here in the emergency Department patient was follow-up with neurology in 1-2 days if symptoms return Findings, need for follow-up, strict return instructions discussed with patient A portion of this note was documented by scribe services under my direction I reviewed the details of note within reason and agree with the documentation with the following case summary and management plan written by me *DC/Admit/Observation/Transfer Diagnosis at time of Disposition: Lightheaded - Discharge Dispostion Admit: No - Referrals - Patient Instructions Printed Discharge Instructions: Dizziness, Nonvertigo Additional Instructions: Drink plenty of fluids. Take all medications as prescribed. Follow-up with neurology in 1-2 days. Return to the emergency department for any severe worsening symptoms or for any concerns. - Post Discharge Activity
[2017-11-13 15:14] LABS: BASO % 0.2 % (0-2.0); EOS % 0.4 % (0-4.5); HEMATOCRIT 42.4 % (35.4-49); HEMOGLOBIN 14.3 GM/dL (11.7-16.9); LYMPH % 14.5 % (8-40); MCH 33.2 pg (25.7-33.7); MCHC 33.9 g/dl (32.0-35.9); MEAN PLT VOLUME 7.9 fl (7.5-11.1); MONO % 7.6 % (3.8-10.2); NEUT % 77.3 % (42.8-82.8); PLATELET COUNT 198 K/MM3 (134-434); RBC 4.32 M/mm3 (4.00-5.60); RDW 13.6 % (11.9-15.9); WHITE BLOOD COUNT 7.4 K/mm3 (4.0-10.0)
[2017-11-13 15:33] LABS: ALBUMIN 3.9 g/dl (3.4-5.0); ALK PHOS 56 U/L (45-117); ANION GAP 4 (8-16); BILIRUBIN,TOTAL 0.4 mg/dL (0.2-1.0); BLOOD UREA NITROGEN 18 mg/dL (7-18); CALCIUM 9.2 mg/dL (8.5-10.1); CHLORIDE 108 mmol/L (98-107); CO2 31 mmol/L (21-32); CREATININE 1.1 mg/dL (0.7-1.3); GLUCOSE,RANDOM 75 mg/dL (74-106); POTASSIUM 4.3 mmol/L (3.5-5.1); SGOT/AST 23 U/L (15-37); SGPT/ALT 28 U/L (12-78); SODIUM 143 mmol/L (136-145); TOT PROT 6.7 g/dl (6.4-8.2)
--- NOTE | 2017-11-13 16:47 | EKG ---
Test Reason : Blood Pressure : / mmHG Vent. Rate : 076 BPM Atrial Rate : 076 BPM P-R Int : 152 ms QRS Dur : 078 ms QT Int : 352 ms P-R-T Axes : 062 043 036 degrees QTc Int : 396 ms NORMAL SINUS RHYTHM NORMAL ECG WHEN COMPARED WITH ECG OF 26-SEP-2017 09:40, NO SIGNIFICANT CHANGE WAS FOUND Confirmed by MD Lane Edward ([id number]) on 11/13/2017 4:47:39 PM Referred By: Confirmed By:Enzo Lane MD
[2017-11-13 18:02] VITALS: BP 125/75; PULSE 75
== END 2017-11-13 17:50 | disposition home or self-care (01) ==
LOC: JER 13:28
DX: R42 Dizziness and giddiness (principal); I10 Essential (primary) hypertension; E78.00 Pure hypercholesterolemia, unspecified; F20.9 Schizophrenia, unspecified; F17.210 Nicotine dependence, cigarettes, uncomplicated
CPT/HCPCS: 36415; 70450-TC; 80053; 85025; 93005; 93010; 99283-25

== ENCOUNTER 2017-11-28 05:36 | Emergency (ER) | payer OTHER ==
[2017-11-28 07:30] VITALS: BP 138/98; PULSE 94; TEMP 98.4; BMI 22.7
[2017-11-28] MEDS ORDERED: KETOROLAC TROMETHAMINE 60 MG/2 ML VIAL IM ONE (08:21)
[2017-11-28] MEDS ORDERED: KETOROLAC TROMETHAMINE 60 MG/2 ML VIAL ONE (08:23)
--- NOTE | 2017-11-28 08:23 | PDOC ---
History of Present Illness - General Chief Complaint: Head/Neck problem Stated Complaint: NECK Time Seen by Provider: 11/28/17 08:15 History Source: Patient Exam Limitations: No Limitations - History of Present Illness Initial Comments: 11/28/17 08:17 Patient is a 57-year-old male history of schizophrenia hypertension, presents with 2 days of right-sided neck stiffness. Woke up with the pain. Denies any trauma, denies falling. Denies headache, no chest pain or shortness of breath. Allergies: No known allergies Medications: See medication list Family History: Non-contributory Social History: Denies smoking, alcohol use, or IVDU Review of Systems GENERAL/CONSTITUTIONAL: [No fever or chills. No weakness. No weight change.] HEAD, EYES, EARS, NOSE AND THROAT: [No change in vision. No ear pain or discharge. No sore throat. ] CARDIOVASCULAR: [No chest pain or shortness of breath.] RESPIRATORY: [No cough, wheezing, or hemoptysis.] GASTROINTESTINAL: [No nausea, vomiting, diarrhea or constipation. No rectal bleeding.] GENITOURINARY: [No dysuria, frequency, or change in urination.] MUSCULOSKELETAL: [No joint or muscle swelling or pain. No neck or back pain.] SKIN AND BREASTS: [No rash or easy bruising.] NEUROLOGIC: [No headache, vertigo, loss of consciousness, or loss of sensation.] PSYCHIATRIC: [No depression or anxiety. History of schizophrenia] ENDOCRINE: [No increased thirst. No abnormal weight change.] HEMATOLOGIC/LYMPHATIC: [No anemia, easy bleeding, or history of blood clots.] ALLERGIC/IMMUNOLOGIC: [No hives or skin allergy. No latex allergy.] Physical Exam: GENERAL: [The patient is awake, alert, and fully oriented, in no acute distress. ] HEAD: [Normal with no signs of trauma.] EYES: [Pupils equal, round and reactive to light, extraocular movements intact, sclera anicteric, conjunctiva clear.] ENT: [Ears normal, nares patent, oropharynx clear without exudates. Moist mucous membranes. No uvula deviation] NECK: [Normal range of motion, supple without lymphadenopathy, JVD, or masses. Right lateral neck spasm, palpable, torticollis, able to move head to the right] LUNGS: [Breath sounds equal, clear to auscultation bilaterally. No wheezes, and no crackles.] HEART: [Regular rate and rhythm, normal S1 and S2 without murmur, rub or gallop. ] ABDOMEN: [Soft, nontender, normoactive bowel sounds. No guarding, no rebound. No masses. No bruising or abrasions] MUSCULOSKELETAL: [Normal range of motion, no edema. No clubbing or cyanosis. No cords, erythema, or tenderness. No CVA Tenderness with fist.] NEUROLOGICAL: [Cranial nerves II through XII grossly intact. Normal speech, normal gait.] PSYCH: [Flat affect SKIN: [Warm, Dry, normal turgor, no rashes or lesions noted.] 11/28/17 09:35 11/28/17 09:37 Past History - Past Medical History Allergies/Adverse Reactions: Allergies Allergy/AdvReac Type Severity Reaction Status Date / Time No Known Allergies Allergy Verified 11/28/17 07:24 Home Medications: Ambulatory Orders Aspirin 81 mg PO DAILY 09/25/17 Metoprolol Tartrate [Lopressor] 100 mg PO DAILY 09/25/17 Simvastatin [Zocor -] 10 mg PO DAILY 09/25/17 Multivitamins [Multivit ([facility] Formulary)] 1 tab PO DAILY 11/13/17 Risperidone 2 mg PO BID 11/13/17 Cyclobenzaprine HCl [Flexeril 10 mg] 10 mg PO BID PRN #10 tablet 11/28/17 Ibuprofen [Motrin -] 600 mg PO QID #20 tablet 11/28/17 COPD: No DVT: No HTN: Yes Hypercholesterolemia: Yes Seizures: Yes (schiophrenia) - Suicide/Smoking/Psychosocial Hx Smoking History: Current every day smoker Have you smoked in the past 12 months: Yes Number of Cigarettes Smoked Daily: 7 Information on smoking cessation initiated: No Hx Alcohol Use: No Drug/Substance Use Hx: No Substance Use Type: None *Physical Exam - Vital Signs Last Vital Signs Temp Pulse Resp BP Pulse Ox 98.4 F 94 H 16 138/98 100 11/28/17 07:25 11/28/17 07:25 11/28/17 07:25 11/28/17 07:25 11/28/17 07:25 Medical Decision Making - Medical Decision Making 11/28/17 09:36 A/P: Patient here for evaluation of right lateral neck pain, spasm consistent with torticollis 60 mg of Toradol given with good result. Patient reports relief of pain and able to turn head to the right. We'll DC patient on anti- inflammatories, Motrin and Flexeril. Follow-up with primary care doctor if pain persists in one week if any increased pain, numbness or tingling, or any other concerns return to ER 11/28/17 09:37 *DC/Admit/Observation/Transfer Diagnosis at time of Disposition: Torticollis - Discharge Dispostion Disposition: HOME Condition at time of disposition: Stable Admit: No - Prescriptions Prescriptions: Cyclobenzaprine HCl [Flexeril 10 mg] 10 mg PO BID PRN #10 tablet PRN Reason: Pain Ibuprofen [Motrin -] 600 mg PO QID #20 tablet - Referrals Referrals: Neftali Cordova MD [Staff Physician] - - Patient Instructions Printed Discharge Instructions: DI for Torticollis Additional Instructions: Warm soaks to neck, medications as prescribed as needed for pain. Recommend follow-up with primary care doctor one week if pain persists if any increased pain, numbness or tingling or any other concerns return to ER. - Post Discharge Activity
== END 2017-11-28 09:53 | disposition home or self-care (01) ==
LOC: JERFT 05:36 → JER 05:36 → JERFT 09:53
PROC: 3E0233Z Introduction of Anti-inflammatory into Muscle, Percutaneous Approach (ICD-10-PCS; principal; 2017-11-28)
DX: M43.6 Torticollis (principal); F17.210 Nicotine dependence, cigarettes, uncomplicated; I10 Essential (primary) hypertension; E78.00 Pure hypercholesterolemia, unspecified; F20.9 Schizophrenia, unspecified
CPT/HCPCS: 96372; 99281-25